=== PATIENT | female | born 1990 | race Caucasian/White ===

== ENCOUNTER 2017-01-22 11:25 | Emergency (ER) | payer OTHER ==
[~2017-01-22] VITALS: Ht 165.1 cm; Wt 68.2 kg
[2017-01-22 11:33] VITALS: BP 122/83; PULSE 89; RESP 16; O2SAT 100
--- NOTE | 2017-01-22 11:46 | ED.REPORT ---
HPI-Abd Pain F Under 41 Date of Service Jan 22, 2017 ED Provider: Donte Jackson MD The pt is a 26 y/o female presenting to the ED complaining of dizziness. She is also experiencing pain running up and down the sides of her abdomen, bloating, lightheadedness, and constipation. Denies vaginal bleeding currently, fever, vomiting, nausea, or dysuria. The pt reports the last day of her last period being 12/29, but it only lasting for two days and w/ heavier bleeding than that of her miscarriage. She then spotted for the two days after that. The pt reports taking multiple home tests which were positive. Nursing Notes Stated Complaint: POSS /BLOATING CRAMPING Chief Complaint: Dizziness Nursing Notes Reviewed: Yes Allergies: Coded Allergies: No Known Allergies (Unverified Allergy, Unknown, 12/17/13) General Time Seen by MD: 11:40 Chief Complaint Other (Dizziness) Hx Obtained From: Patient Arrived By: Walk-in Sudden in Onset?: Yes Symptom Duration: Since onset Recent Healthcare: No recent doctor visit, No recent hospitalization Similar Sx Previous: No Past Medical History Past Medical History None reported Past Surgical History None reported Smoking History Unknown if Ever Smoker Social History None reported Ambulatory Status Independent Review of Systems Pain running up and down sides of abdomen; Bloating; Constitutional: Denies: Fever GI: Reports: Constipation, Denies: Nausea, Vomiting Female: Denies: Dysuria, Vaginal bleeding - abnl Complete sys rev & neg: except as marked. Neurologic: Reports: Dizziness, Lightheaded Physical Exam Initial Vital Signs Vital Signs (First) Date Time Temp Pulse Resp B/P Pulse Ox O2 Delivery O2 Flow Rate FiO2 01/22/17 11:33 36.6 89 16 122/83 100 Room Air Initial VS: Reviewed Head / Eyes: Atraumatic, Normocephalic, PERRL ENT: Mucous membranes moist, Conjunctiva normal, No scleral icterus Neck: Supple, Non-tender, Full range of motion Extremities: Vascular intact, Neuro intact, No swelling, No tenderness Skin: Warm, Dry, No cyanosis Neurologic: Alert, Oriented, Nonfocal Psychiatric: Mood/affect normal, Behavior normal, Normal thought content General/Constitutional: Awake, Alert Respiratory / Chest: Atraumatic, Breath sounds NL, Breath sounds = bilat Cardiovascular: Heart rate NL, Regular rhythm, Heart sounds NL Abdomen: Atraumatic, Soft, Non-tender Back: Atraumatic, Inspection NL, Full range of motion Interpretation & Diagnostics Lab Results Interpretation Result Diagram: 01/22/17 1202 01/22/17 1202 Test 01/22/17 11:48 01/22/17 12:02 Urine Color Straw (YELLOW) Urine Appearance Hazy (CLEAR,HAZY) Urine pH 6.0 (5.0-8.0) Urine Specific [place] 1.010 (1.003-1.035) Urine Protein Negativemg/dL (NEG,TRACE) Urine Glucose (UA) Negativemg/dL (NEGATIVE) Urine Ketones Negativemg/dL (NEGATIVE) Urine Occult Blood Trace (NEGATIVE) Urine Nitrite Negative (NEGATIVE) Urine Bilirubin Negative (NEGATIVE) Urine Urobilinogen Normalmg/dL (NORMAL) Urine Leukocyte Esterase Negative (NEGATIVE) Urine RBC 0-2/hpf (0-2) Urine WBC 0-5/hpf (0-5) Urine Epithelial Cells Moderate/hpf (NONE-MOD) Urine Crystals None seen (NONE SEEN) Urine Bacteria Few/hpf (NONE-FEW) Urine Hyaline Casts None/lpf (NONE) Urine Granular Casts None seen (NONE SEEN) Urine Waxy Casts None seen (NONE SEEN) Urine Red Blood Cell Casts None seen (NONE SEEN) Urine White Blood Cell Casts None seen (NONE SEEN) Urine Mucus None seen (None Seen) Urine Trichomonas None seen (NONE SEEN) Urine Yeast None (NONE SEEN) Urinalysis Comment None Urine Culture Reflexed Not indicated White Blood Count 8.6th/mm3 (3.8-10.1) Red Blood Count 4.26mil/mm3 (3.90-5.20) Hemoglobin 13.0g/dL (12.0-15.6) Hematocrit 37.2% (35.0-46.0) Mean Corpuscular Volume 87.3fL (81-100) Mean Corpuscular Hemoglobin 30.5pg (27.0-35.0) Mean Corpuscular Hemoglobin Concent 34.9% (32.0-37.0) Red Cell Distribution Width 12.6% (12.3-15.4) Platelet Count 247bil/L (150-400) Neutrophils (%) (Auto) 49.5% (40-74) Lymphocytes (%) (Auto) 39.8% (14-46) Monocytes (%) (Auto) 6.7% (4-12) Eosinophils (%) (Auto) 3.6% (0-5) Basophils (%) (Auto) 0.2% (0-3) Sodium Level 137mEq/L (134-144) Potassium Level 3.9mEq/L (3.5-5.2) Chloride Level 102mEq/L (97-108) Carbon Dioxide Level 20mmol/L (18-29) Blood Urea Nitrogen 11mg/dL (6-20) Creatinine 0.50mg/dL (0.57-1.00) Estimat Glomerular Filtration Rate 215mL/min (>59) Glucose Level 100mg/dL (60-99) Calcium Level 9.2mg/dL (8.5-10.1) Total Bilirubin 0.2mg/dL (0.0-1.2) Aspartate Amino Transf (AST/SGOT) 17U/L (0-50) Alanine Aminotransferase (ALT/SGPT) 14U/L (0-32) Alkaline Phosphatase 64U/L (25-150) Total Protein 7.0g/dL (6.4-8.4) Albumin 4.5g/dL (3.4-5.0) HCG Beta Subunit 56.51mIU/mL Hold Peterson Top Tube Received (Received) Re-Eval/Medical Decision Source of Hx: Old records Re-Evaluation/Progress : Time of Eval: 13:19 Re-Evaluation/Progress Note: Pt rechecked. Informed pt of plan for treatment. Pt understands and agrees with plan for treatment. F/U instructions and RTER warnings given. All questions addressed. Counseled Regarding: Diagnosis, Lab results, Need for follow-up, When/why to return to ED Discharge & Departure Primary Impression: Abdominal pain Additional Impression: Threatened Disposition: Home Discharge Condition All VS Reviewed: Yes Condition: Stable Additional Instructions: Thank for you entrusting us with your care today. Her blood work shows a very low level. Given the fact that you had a positive urine test just recently, a very plausible explanation today is that your hormone is waning. However, only time will tell. If you develop sudden severe abdominal pain, please return to the emergency department so we can assess you more thoroughly for ectopic . Tylenol as needed for pain. I hope you feel better soon. Referrals: Zabrina Grullon MD [facility] Portions of this note were transcribed by Florin Hunter. I, Dr. Jackson personally performed the history, physical exam and medical decision-making; I reviewed and confirmed the accuracy of the information in the transcribed note. copies to: Zabrina Grullon MD, Kirk H MD Jan 22, 2017 11:46 Florin Hunter Jan 22, 2017 12:35
[2017-01-22 12:08] LABS: BASOPHILS % (AUTO) 0.2 % (0-3); EOSINOPHILS % (AUTO) 3.6 % (0-5); MONOCYTES % (AUTO) 6.7 % (4-12); Mean Corpuscular Hemoglobin 30.5 pg (27.0-35.0); Mean Corpuscular Volume 87.3 fL (81-100); NEUTROPHILS % (AUTO) 49.5 % (40-74); Platelet Count 247 bil/L (150-400)
[2017-01-22 12:11] LABS: APPEARANCE,URINE HAZY (CLEAR,HAZY); COLOR,URINE STRAW (YELLOW); OCCULT BLOOD,URINE TRACE (NEGATIVE); UROBILINOGEN,URINE NORMAL (NORMAL)
== END 2017-01-22 13:32 | disposition home or self-care (01) ==
LOC: SED 11:25
DX: O20.0 Threatened abortion (principal); O99.611 Diseases of the digestive system complicating pregnancy, first trimester; K59.00 Constipation, unspecified; R14.0 Abdominal distension (gaseous); Z3A.01 Less than 8 weeks gestation of pregnancy